=== PATIENT | male | born 1980 | race Caucasian/White ===

== ENCOUNTER 2022-05-07 07:01 | Day surgery (SDC) | payer OTHER ==
[~2022-05-07] VITALS: Ht 188 cm; Wt 82.0 kg
[~2022-05-07 07:01] MED LIST: OMEP20 PO; SODIUM CHLORIDE 0.9% 1,000 ML IV ONE
[2022-05-07] MEDS ORDERED: LIDOCAINE 4% 50 ML SOLUTION TP ONE (07:02)
[2022-05-07] MEDS ORDERED: ALBUTEROL SULFATE 2.5 MG/0.5 ML NEB SOLUTION NEB ONE (07:02)
[2022-05-07] MEDS ORDERED: LIDOCAINE 2% 11 ML JELLY TP ONE (07:02)
[2022-05-07] MEDS ORDERED: BENZOCAINE 20% 50 MCG/SPRAY 57 GM TP ONE (07:02)
[2022-05-07] MEDS ORDERED: SODIUM CHLORIDE 0.9% 1,000 ML ONE (07:31)
[2022-05-07] MEDS ORDERED: MIDAZOLAM HCL 2 MG/2 ML VIAL ONE (07:58)
[2022-05-07] MEDS ORDERED: FentaNYL CITRATE PF 100 MCG/2 ML VIAL ONE (07:59)
[2022-05-07 08:22] LABS: COVID AG,FIA SOURCE NASAL SWAB
[2022-05-07] MEDS ORDERED: MethylPREDNISolone SOD SUCC 125 MG/2 ML VIAL ONE (09:37)
[2022-05-07] MEDS ORDERED: MethylPREDNISolone SOD SUCC 125 MG/2 ML VIAL IVP ONE (09:45)
== END 2022-05-12 10:45 | disposition home or self-care (01) ==
LOC: SURGERY 07:01
PROVIDERS: ATTEND Internal Medicine Critical Care Medicine
DX: R05.3 Chronic cough (principal); J98.8 Other specified respiratory disorders; J98.9 Respiratory disorder, unspecified; R91.1 Solitary pulmonary nodule; Z20.822 Contact with and (suspected) exposure to COVID-19; Z79.899 Other long term (current) drug therapy; Z98.890 Other specified postprocedural states
CPT/HCPCS: 31623; 87101; 87220; 87070; 31624; 94640; 71045; 87015; 87426; 87206; J3010; J2250; J2930; Q9967; J7030; C9803; 88112; J7613; Z7610